=== PATIENT | male | born 1990 | race Caucasian/White ===

== ENCOUNTER 2017-10-04 14:21 | Emergency (ER) | payer OTHER ==
[2017-10-04] MEDS ORDERED: NA CHLORIDE 0.9% 1,000 ML ONE (14:44)
[2017-10-04 15:02] LABS: Absolute Lymphocytes (CBC) 1.3 K/uL (0.7-4.9); Absolute Monocytes 0.4 K/uL (0.1-1.3); Absolute Neutrophil 2.8 K/uL (1.8-8.0); Basophils % 0.7 % (0-1.3); Hematocrit 42.1 % (39.6-49.0); Lymphocytes % 28.2 % (15.3-44.8); MCH 29.9 pg (27.0-35.0); MCV 87.4 fL (80-100); MPV 9.5 fL (7.6-11.3); Monocytes % 8.2 % (3.3-12.3); RBC Red Blood Cell Count 4.82 M/uL (4.33-5.43)
[2017-10-04 15:10] LABS: Bicarbonate 27 mEq/L (21-31); Glucose Level 91 mg/dL (65-120); Potassium 3.6 mEq/L (3.6-5.0); Sodium Level 141 mEq/L (135-145)
[2017-10-04 15:11] LABS: BUN Blood Urea Nitrogen 10 mg/dL (6-20)
--- NOTE | 2017-10-04 15:43 | EDPHYS ---
Physician Documentation [facility] Name: Juventino Miller Age: 27 yrs Sex: Male : 1990 Arrival Date: 10/04/2017 Time: 14:22 Bed 6 Private MD: ED Physician Rupesh Novak HPI: 10/04 14:50 This 27 yrs old Male presents to ER via EMS with complaints of Heat Exposure. jr8 14:50 Patient stated that he was working outside in heat all day yesterday. Stated that today ria was in his work truck that does not have A/C. Stated that he started to feel dizzy and nauseated. Severity of symptoms: At their worst the symptoms were moderate in the emergency department the symptoms have improved moderately. The patient has not experienced similar symptoms in the past. The patient has not recently seen a physician. Historical: - Allergies: 14:25 No Known Allergies; hb - Home Meds: 14:25 None [Active]; hb - PMHx: 14:25 ESOPHAGEAL SPASMS; hb - PSHx: 14:25 None; hb - Immunization history:: Adult Immunizations up to date. - Social history:: Smoking status: Patient/guardian denies using tobacco. - Ebola Screening: : No symptoms or risks identified at this time. ROS: 14:50 Eyes: Negative for injury, pain, redness, and discharge, ENT: Negative for injury, jr8 pain, and discharge, Neck: Negative for injury, pain, and swelling, Respiratory: Negative for shortness of breath, cough, wheezing, and pleuritic chest pain, Back: Negative for injury and pain, MS/Extremity: Negative for injury and deformity, Skin: Negative for injury, rash, and discoloration. 14:50 Abdomen/GI: Positive for nausea, Negative for abdominal pain, vomiting, diarrhea, abdominal cramps, abdominal distension, anorexia, dysphagia, hematemesis, black/tarry stool, rectal pain, rectal bleeding, bowel incontinence, flatulence. 14:50 Neuro: Positive for dizziness, Negative for altered mental status, gait disturbance, headache, hearing loss, loss of consciousness, numbness, seizure activity, speech changes, syncope, near syncope, tingling, tinnitus, tremor, visual changes, weakness. Exam: 14:58 Eyes: Pupils equal round and reactive to light, extra-ocular motions intact. Lids and jr8 lashes normal. Conjunctiva and sclera are non-icteric and not injected. Cornea within normal limits. Periorbital areas with no swelling, redness, or edema. ENT: Nares patent. No nasal discharge, no septal abnormalities noted. Tympanic membranes are normal and external auditory canals are clear. Oropharynx with no redness, swelling, or masses, exudates, or evidence of obstruction, uvula midline. Mucous membranes moist. Neck: Trachea midline, no thyromegaly or masses palpated, and no cervical lymphadenopathy. Supple, full range of motion without nuchal rigidity, or vertebral point tenderness. No Meningismus. Cardiovascular: Regular rate and rhythm with a normal S1 and S2. No gallops, murmurs, or rubs. Normal PMI, no JVD. No pulse deficits. Respiratory: Lungs have equal breath sounds bilaterally, clear to auscultation and percussion. No rales, rhonchi or wheezes noted. No increased work of breathing, no retractions or nasal flaring. Abdomen/GI: Soft, non-tender, with normal bowel sounds. No distension or tympany. No guarding or rebound. No evidence of tenderness throughout. Back: No spinal tenderness. No costovertebral tenderness. Full range of motion. Skin: Warm, dry with normal turgor. Normal color with no rashes, no lesions, and no evidence of cellulitis. MS/ Extremity: Pulses equal, no cyanosis. Neurovascular intact. Full, normal range of motion. Neuro: Awake and alert, GCS 15, oriented to person, place, time, and situation. Cranial nerves II-XII grossly intact. Motor strength 5/5 in all extremities. Sensory grossly intact. Cerebellar exam normal. Normal gait. Vital Signs: 14:24 BP 134 / 97; Pulse 74; Resp 22; Temp 98.8; Pulse Ox 100% on R/A; Pain 2/10; hb 15:37 BP 119 / 68; Pulse 80; Resp 18; Pulse Ox 100% on R/A; hj MDM: 14:28 Patient medically screened. jr8 15:39 Data reviewed: vital signs, nurses notes, lab test result(s), and as a result, I will jr8 discharge patient. Data interpreted: Pulse oximetry: on room air is 100 %. Interpretation: normal. Counseling: I had a detailed discussion with the patient and/or guardian regarding: the historical points, exam findings, and any diagnostic results supporting the discharge/admit diagnosis, lab results, the need for outpatient follow up, a family practitioner, to return to the emergency department if symptoms worsen or persist or if there are any questions or concerns that arise at home. Response to treatment: the patient's symptoms have markedly improved after treatment, patient is well hydrated. 10/04 14:35 Order name: CBC with Diff; Complete Time: 15:33 jr8 10/04 14:35 Order name: Basic Metabolic Panel; Complete Time: 15:11 jr8 Administered Medications: 14:35 Drug: NS 0.9% 1000 ml Route: IV; Rate: 1000 ml; Site: right antecubital; Disposition: 16:10 Co-signature as Attending Physician, Rupesh Novak MD I agree with the assessment and kdr plan of care. Disposition: 10/04/17 15:42 Discharged to Home. Impression: Heat exhaustion, unspecified. - Condition is Stable. - Discharge Instructions: Heat-Related Illness. - Medication Reconciliation Form, Thank You Letter, Antibiotic Education, Prescription Opioid Use form. - Follow up: Private Physician; When: As needed; Reason: Recheck today's complaints, Continuance of care, Re-evaluation by your physician. - Problem is new. - Symptoms are resolved. Signatures: Dispatcher [employer] EDMS Rupesh Novak MD MD [facility] Sal Vasquez PA PA jr8 Dario Grullon RN RN Mary Lamb RN RN Corrections: (The following items were deleted from the chart) 15:58 15:42 10/04/2017 15:42 Discharged to Home. Impression: Heat exhaustion, unspecified. hj Condition is Stable. Forms are Medication Reconciliation Form, Thank You Letter, Antibiotic Education, Prescription Opioid Use. Follow up: Private Physician; When: As needed; Reason: Recheck today's complaints, Continuance of care, Re-evaluation by your physician. Problem is new. Symptoms are resolved. jr8
--- NOTE | 2017-10-04 15:43 | ER ---
Nurse's Notes [facility] Name: Juventino Miller Age: 27 yrs Sex: Male : 1990 Arrival Date: 10/04/2017 Time: 14:22 Bed 6 Private MD: Diagnosis: Heat exhaustion, unspecified Presentation: 10/04 14:22 Presenting complaint: EMS states: Sudden nausea, abdominal pain, and dizziness while hb working outside in the heat. BP 133/76, HR 80, T98.7, BGL 106. Transition of care: patient was not received from another setting of care. Onset of symptoms was October 04, 2017. Risk Assessment: Do you want to hurt yourself or someone else? Patient reports no desire to harm self or others. Initial Sepsis Screen: Does the patient meet any 2 criteria? No. Patient's initial sepsis screen is negative. Does the patient have a suspected source of infection? No. Patient's initial sepsis screen is negative. Care prior to arrival: Medication(s) given: Normal saline infusion, 500 mL, zofran 4 mg, IV initiated. 18 GA, in the right antecubital area, Glucose check: 106. 14:22 Method Of Arrival: EMS: [facility] hb 14:22 Acuity: TOMÁS 3 hb Triage Assessment: 14:25 General: Appears in no apparent distress. Behavior is calm, cooperative. Pain: Pain hb currently is 3 out of 10 on a pain scale. EENT: No signs and/or symptoms were reported regarding the EENT system. Neuro: Level of Consciousness is awake, alert, obeys commands, Oriented to person, place, time, situation. Cardiovascular: Capillary refill < 3 seconds Patient's skin is warm and dry. Respiratory: Airway is patent Trachea midline Respiratory effort is even, unlabored, Respiratory pattern is regular, symmetrical. GI: Reports lower abdominal pain, upper abdominal pain, nausea. : No signs and/or symptoms were reported regarding the genitourinary system. Derm: No signs and/or symptoms reported regarding the dermatologic system. Skin is intact, is healthy with good turgor, Skin is pink, warm \T\ dry. Musculoskeletal: No signs and/or symptoms reported regarding the musculoskeletal system. Historical: - Allergies: 14:25 No Known Allergies; hb - Home Meds: 14:25 None [Active]; hb - PMHx: 14:25 ESOPHAGEAL SPASMS; hb - PSHx: 14:25 None; hb - Immunization history:: Adult Immunizations up to date. - Social history:: Smoking status: Patient/guardian denies using tobacco. - Ebola Screening: : No symptoms or risks identified at this time. Screenin:26 Abuse screen: Denies threats or abuse. Denies injuries from another. Nutritional hb screening: No deficits noted. Tuberculosis screening: No symptoms or risk factors identified. Fall Risk None identified. Assessment: 14:26 General: see triage assessment. hb 15:37 Reassessment: Patient and/or family updated on plan of care and expected duration. Pain hj level reassessed. Patient is alert, oriented x 3, equal unlabored respirations, skin warm/dry/pink. awaiting results and POC;. Vital Signs: 14:24 BP 134 / 97; Pulse 74; Resp 22; Temp 98.8; Pulse Ox 100% on R/A; Pain 2/10; hb 15:37 BP 119 / 68; Pulse 80; Resp 18; Pulse Ox 100% on R/A; hj ED Course: 14:22 Patient arrived in ED. hb 14:24 Triage completed. hb 14:25 Arm band placed on right wrist. hb 14:26 Patient has correct armband on for positive identification. Placed in gown. Bed in low hb position. Call light in reach. Side rails up X 1. 14:26 Maintain EMS IV. Dressing intact. Good blood return noted. Site clean \T\ dry. Gauge \T\ hj site: 20g R AC. 14:28 [facility] jr8 14:28 Rupesh Novak MD is Attending Physician. jr8 14:31 Mary Lamb, ROCIO is Primary Nurse. hb 15:57 No provider procedures requiring assistance completed. IV discontinued, intact, hj bleeding controlled, No redness/swelling at site. Pressure dressing applied. Administered Medications: 14:35 Drug: NS 0.9% 1000 ml Route: IV; Rate: 1000 ml; Site: right antecubital; hj Outcome: 15:42 Discharge ordered by . jr8 15:57 Discharged to home ambulatory. hj 15:57 Condition: stable 15:57 Discharge instructions given to patient, Instructed on discharge instructions, follow up and referral plans. Demonstrated understanding of instructions, follow-up care. 15:58 Patient left the ED. hj Signatures: Sal Vasquez PA PA jr8 Dario Grullon RN RN Mary Nguyen RN RN hb Corrections: (The following items were deleted from the chart) 14:24 14:22 Care prior to arrival: Medication(s) given: Normal saline infusion, 500 mL, hb zofran 4 mg, hb
== END 2017-10-04 15:58 | disposition home or self-care (01) ==
LOC: ER 14:21
DX: T67.5XXA Heat exhaustion, unspecified, initial encounter (principal); X58.XXXA Exposure to other specified factors, initial encounter; Y92.69 Other specified industrial and construction area as the place of occurrence of the external cause
CPT/HCPCS: 36415; 80048; 85025; 99283; J7030